=== PATIENT | male | born 2000 | race Caucasian/White ===

== ENCOUNTER → 2024-03-23 | Outpatient (CLI) | payer OTHER | LOC: MHCPAIN 10:07 | DX: M47.816 Spondylosis without myelopathy or radiculopathy, lumbar region (principal); M51.26 Other intervertebral disc displacement, lumbar region | CPT/HCPCS: G0463 ==

== ENCOUNTER → 2024-04-01 | Outpatient (CLI) | payer OTHER ==
[~2024-04-01] MED LIST: Iohexol 300 - 10 ML VIAL ONE; Lidocaine PF 2% (20 MG/ML) 2 ML VIAL ONE
== END ==
LOC: MHCPAIN 14:30
DX: M54.16 Radiculopathy, lumbar region (principal); M43.27 Fusion of spine, lumbosacral region
CPT/HCPCS: J1100; Q9967

== ENCOUNTER → 2024-05-26 | Outpatient (CLI) | payer OTHER | LOC: MHCPAIN 14:00 | DX: M51.26 Other intervertebral disc displacement, lumbar region (principal); M47.816 Spondylosis without myelopathy or radiculopathy, lumbar region | CPT/HCPCS: G0463 ==

== ENCOUNTER → 2024-06-17 | Outpatient (CLI) | payer OTHER ==
[~2024-06-17] MED LIST changes: +Atropine 1 MG/10 ML SYRINGE IV ONE; +Glycopyrrolate 0.2 MG/ML 1 ML VIAL ONE; +ePHEDrine 50 MG/10 ML VIAL IV ONE
== END ==
LOC: MHCPAIN 07:34
DX: M54.16 Radiculopathy, lumbar region (principal); M54.50 Low back pain, unspecified
CPT/HCPCS: J0461; J1010; Q9967

== ENCOUNTER → 2024-07-14 | Outpatient (CLI) | payer OTHER | LOC: MHCPAIN 14:28 | DX: M47.26 Other spondylosis with radiculopathy, lumbar region (principal); M54.50 Low back pain, unspecified; M51.16 Intervertebral disc disorders with radiculopathy, lumbar region | CPT/HCPCS: G0463 ==